=== PATIENT | female | born 1950 | race Caucasian/White ===

== ENCOUNTER 2017-12-28 06:55 | Day surgery (SDC) | payer OTHER ==
[2017-12-28] MEDS ORDERED: Ringers Lactate 1,000 ML IV ONE (07:59)
[2017-12-28] MEDS ORDERED: PROPOFOL 200 MG/20 ML VIAL IV ONE ×2 (08:39→08:40)
[2017-12-28] MEDS ORDERED: LIDOCAINE 1% MPF 5 ML VIAL ONE (08:40)
--- NOTE | 2017-12-28 09:02 | ENDO RPT ---
[address], [address] COLONOSCOPY PROCEDURE REPORT EXAM DATE: 12/28/2017 PATIENT NAME: Tamara Acevedo MR #: [id number] BIRTHDATE: 1950 ATTENDING: Ruben Linn DR STATUS: outpatient PACKING FLOOR WORKER: Geo Angel, Carmen Lamb RN, and Hortensia Warner RN INDICATIONS: The patient is a 67 yr old Female here for a colonoscopy due to colon cancer screening PROCEDURE PERFORMED: Colonoscopy with biopsy - cold polypectomy MEDICATIONS: Per Anesthesia. ESTIMATED BLOOD LOSS: None CONSENT: The patient understands the risks and benefits of the procedure and understands that these risks include, but are not limited to: sedation, allergic reaction, infection, perforation and/or bleeding. Alternative means of evaluation and treatment include, among others: physical exam, x-rays, and/or surgical intervention. The patient elects to proceed with this endoscopic procedure. DESCRIPTION OF PROCEDURE: During intra-op preparation period all mechanical medical equipment was checked for proper function. Hand hygiene and appropriate measures for infection prevention was taken. Procedure, possible complications, alternatives including, but not limited to possibility of bleeding, perforation, tear, infection, sepsis, need for surgery, need for blood transfusion, were explained to the patient. After the risks, benefits and alternatives of the procedure were thoroughly explained, Informed consent was verified, confirmed and timeout was successfully executed by the treatment team. The patient was placed in the left lateral position. A digital rectal exam was performed and revealed internal hemorrhoids and A digital rectal exam was performed and revealed several skin tags. After appropriate level of anesthesia, the scope was passed. The EC-[id number] ([id number]) endoscope was introduced through the anus and advanced to the cecum, which was identified by both the appendix and ileocecal valve. The quality of the prep was poor. The instrument was then slowly withdrawn as the colon was fully examined. Scope withdrawal time was 12 minutes. COLON FINDINGS: Three small smooth and polypoid shaped semi-pedunculated polyps with friable surfaces were found at the appendiceal orifice, and 2 in the rectum. A polypectomy was performed with cold forceps on appendiceal polyp and using snare cautery on the rectal polyps. The resection was complete, the polyp tissue was completely retrieved and sent to histology. There was moderate diverticulosis noted throughout the entire examined colon with associated angulation. No bleeding was noted from the diverticulosis. Moderate sized internal hemorrhoids were found. Retroflexed views revealed medium hemorrhoids. The scope was then completely withdrawn from the patient and the procedure terminated. ADVERSE EVENTS: There were no complications. IMPRESSIONS: 1. Three small semi-pedunculated polyps were found at the appendiceal orifice, cecum, and in the rectum; polypectomy was performed in a piecemeal fashion with cold forceps and using snare cautery 2. There was moderate diverticulosis noted throughout the entire examined colon 3. Moderate sized internal hemorrhoids RECOMMENDATIONS: 1. avoid NSAIDS for 2 weeks 2. await biopsy results 3. follow-up: office 2 week(s) 4. low fiber / diverticular diet 5. yearly hemoccult starting in 4 years 6. increase dietary water RECALL: for Colonoscopy, pending biopsy results. Ruben Linn DR eSigned: Ruben Linn DR 12/28/2017 9:01 AM cc: CPT CODES: ICD9 CODES: PATIENT NAME: Tamara Acevedo MR#: [id number]
[2017-12-28] MEDS ORDERED: GLYCOPYRROLATE 0.2 MG/ML SYR ONE (09:17)
== END 2017-12-28 09:37 | disposition home or self-care (01) ==
LOC: ENDO 06:55
PROVIDERS: ATTEND Surgery
PROC: 0DBP8ZX Excision of Rectum, Via Natural or Artificial Opening Endoscopic, Diagnostic (ICD-10-PCS; 2017-12-28)
PROC: 0DBH8ZX Excision of Cecum, Via Natural or Artificial Opening Endoscopic, Diagnostic (ICD-10-PCS; principal; 2017-12-28 08:30)
DX: Z12.11 Encounter for screening for malignant neoplasm of colon (principal); D12.0 Benign neoplasm of cecum; D12.1 Benign neoplasm of appendix; K62.1 Rectal polyp; K57.90 Diverticulosis of intestine, part unspecified, without perforation or abscess without bleeding; K64.8 Other hemorrhoids; I10 Essential (primary) hypertension; E66.9 Obesity, unspecified; Z79.82 Long term (current) use of aspirin; Z80.1 Family history of malignant neoplasm of trachea, bronchus and lung
CPT/HCPCS: 88305

== ENCOUNTER 2025-05-10 07:27 | Day surgery (SDC) | payer OTHER ==
[2025-05-10] MEDS: Ringers Lactate 1,000 ML IV ONE (08:10)
[2025-05-10] MEDS ORDERED: LIDOCAINE 1% MPF 5 ML VIAL ONE ×2 (09:23→10:14)
[2025-05-10] MEDS ORDERED: GLYCOPYRROLATE 0.2 MG/ML SYR ONE (10:15)
[2025-05-10] MEDS ORDERED: ONDANSETRON 4 MG/2 ML VIAL ONE (10:15)
[2025-05-10 11:10] VITALS: BP 133/71; TEMP 97; O2SAT 100
== END 2025-05-10 11:00 | disposition home or self-care (01) ==
LOC: OR 07:27
PROVIDERS: ATTEND Surgery
PROC: 0DBN8ZX Excision of Sigmoid Colon, Via Natural or Artificial Opening Endoscopic, Diagnostic (ICD-10-PCS; 2025-05-10)
PROC: 0DBC8ZX Excision of Ileocecal Valve, Via Natural or Artificial Opening Endoscopic, Diagnostic (ICD-10-PCS; 2025-05-10)
PROC: 0DBH8ZX Excision of Cecum, Via Natural or Artificial Opening Endoscopic, Diagnostic (ICD-10-PCS; principal; 2025-05-10 09:00)
DX: Z12.11 Encounter for screening for malignant neoplasm of colon (principal); K57.30 Diverticulosis of large intestine without perforation or abscess without bleeding; K64.8 Other hemorrhoids; K52.9 Noninfective gastroenteritis and colitis, unspecified; K63.5 Polyp of colon; D12.1 Benign neoplasm of appendix
CPT/HCPCS: 88305; 45380; J2704 ×2; J2003 ×2; J2405; J7120; 88304